=== PATIENT | male | born 1985 | race Caucasian/White ===

== ENCOUNTER → 2020-06-12 09:02 | Outpatient (BNVA) | payer MEDICAID, SELFPAY | PROVIDERS: PCP Internal Medicine; Visit Provider Physician Assistant ==

== ENCOUNTER → 2020-08-08 08:56 | Outpatient (BNVA) | payer MEDICAID, SELFPAY | PROVIDERS: PCP Internal Medicine; Visit Provider Physician Assistant ==

== ENCOUNTER → 2022-04-01 08:46 | Outpatient (BNVA) | payer MEDICAID, SELFPAY | PROVIDERS: PCP Internal Medicine; Referring Provider Internal Medicine; Visit Provider Internal Medicine Cardiovascular Disease | DX: R07.9 Chest pain, unspecified (principal) | CPT/HCPCS: 93005; 99202 ==

== ENCOUNTER → 2022-04-13 09:05 | Outpatient (REF) | payer MEDICAID, SELFPAY ==
--- NOTE | 2022-04-13 09:07 | CA_ITS ---
Acquisition Time: 2022-04-13 09:25:26 Total Exercise Time: 00:10:18 Test Indications: CP Medications: SEE CHART Protocol: JIM Max HR: 184 BPM 101% of Pred: 182 BPM Max BP: 184/054 mmHG Max Work Load: 12.2 METS Exercise stress test with exercise 10 min 18 sec of Jim protocol, achieving 101% MPHR, 12.2 METs, without anginal symptoms, with request to stop due to low back discomfort, with isolated PVC, with normotensive response to exercise, without EKG changes meeting criteria for ischemia. Test reviewed with Dr Saenz. Referred By: Aneudy Saenz Overread By: CHINA CASTREJON
== END ==
LOC: HO.CARD 09:05
PROVIDERS: PCP Internal Medicine; Visit Provider Internal Medicine Cardiovascular Disease
DX: R07.9 Chest pain, unspecified (principal)
CPT/HCPCS: 93017

== ENCOUNTER 2022-04-29 08:20 | Outpatient (REF) | payer MEDICAID, SELFPAY ==
--- NOTE | ~2022-04-29 | US_ITS ---
EXAMINATION: US ABDOMEN COMPLETE CLINICAL INFORMATION: Cholesterolosis of gallbladder. COMPARISON: Abdominal ultrasound 04/04/2019 and 08/11/2018. TECHNIQUE: Real-time imaging of the abdominal viscera. FINDINGS: PANCREAS: Normal. The visualized pancreatic head and body are normal in appearance. The remainder of the pancreas is obscured from visualization by the overlying bowel gas. ABDOMINAL AORTA: The proximal, mid, and distal segments are normal in caliber. INFERIOR VENA CAVA: Visualized portions are normal. LIVER: The liver is normal in size. The liver contour is normal. There is mildly increased liver parenchymal echotexture. No focal hepatic lesion. There is no intrahepatic biliary duct dilatation seen. GALLBLADDER: 4 mm, 4 mm and 4 mm nonmobile gallbladder polyps are seen. The gallbladder is physiologically distended without evidence of stones, sludge, wall thickening or pericholecystic fluid. COMMON BILE DUCT: Normal in caliber measuring 0.4 cm in diameter. RIGHT KIDNEY: A 1.3 cm anechoic, simple parapelvic cyst is noted. No hydronephrosis or renal calculi. The kidney measures 10.7 cm in maximum dimension. LEFT KIDNEY: At the lower pole laterally, a 1.6 cm anechoic, simple cyst is seen. No hydronephrosis or renal calculi. The kidney measures 11.0 cm in maximum dimension. SPLEEN: Normal. The spleen measures 8.5 cm in maximum dimension. FREE FLUID: None. US/US abdomen complete IMPRESSION: 1. Tiny, stable gallbladder polyps are redemonstrated, consistent with cholesterol polyps. 2. There is generalized increase in hepatic echotexture, consistent with fatty infiltration or hepatocellular disease. Please correlate clinically. No focal hepatic mass or intrahepatic biliary dilatation is seen. 3. Simple bilateral renal cysts are noted. 4. Technically limited ultrasound examination of the pancreatic tail.
== END 2022-04-29 08:21 | disposition home or self-care (01) ==
LOC: HO.US 08:20
PROVIDERS: Visit Provider Internal Medicine
DX: K82.4 Cholesterolosis of gallbladder (principal)
CPT/HCPCS: 76700

== ENCOUNTER 2022-04-30 13:08 | Outpatient (REF) | payer MEDICAID, SELFPAY ==
--- NOTE | 2022-04-30 08:00 | EMG_ITS ---
SUMMARY: Left median and ulnar motor and sensory studies were performed. Left radial sensory study was performed and paraspinal muscles were tested with a needle. IMPRESSION: Mild left ulnar neuropathy across cubital tunnel. MD MAURO Vee/MISHEL / [phone]
== END 2022-04-30 13:09 | disposition home or self-care (01) ==
LOC: HO.NEURO 13:08
PROVIDERS: PCP Internal Medicine; Visit Provider Internal Medicine
DX: R20.0 Anesthesia of skin (principal)
CPT/HCPCS: 95886; 95909

== ENCOUNTER → 2022-06-29 08:51 | Outpatient (BNVA) | payer MEDICAID, SELFPAY | PROVIDERS: PCP Internal Medicine; Referring Provider Internal Medicine; Visit Provider Internal Medicine Cardiovascular Disease | DX: R07.9 Chest pain, unspecified (principal) | CPT/HCPCS: 99212 ==

== ENCOUNTER 2022-11-13 13:49 | Outpatient (REF) | payer MEDICAID, SELFPAY ==
--- NOTE | ~2022-11-13 | XR_ITS ---
EXAMINATION: XR LUMBOSACRAL SPINE WITH OBLIQUES CLINICAL INFORMATION: 4 days of low back pain. Acute right lower extremity sciatica. COMPARISON: Lumbar spine 08/11/2018 TECHNIQUE: AP, both oblique, and lateral views of the lumbar spine. Lateral view of the lumbosacral junction. FINDINGS: The vertebral bodies and posterior elements are normal. The disc spaces are preserved and the vertebral alignment is normal. The paraspinal soft tissues are normal. XR/XR lumbar spine 4V min IMPRESSION: Unremarkable examination.
== END 2022-11-13 13:50 | disposition home or self-care (01) ==
LOC: HO.HHCX 13:49
PROVIDERS: Visit Provider Emergency Medicine
DX: M54.16 Radiculopathy, lumbar region (principal)
CPT/HCPCS: 72110

== ENCOUNTER 2022-11-23 09:31 | Emergency (ER) | payer MEDICAID, SELFPAY ==
[2022-11-23 09:32] VITALS: BP 138/82; PULSE 81; RESP 17; TEMP 36.4; O2SAT 99; BMI 32.6
--- NOTE | 2022-11-23 10:03 | PC.NURSE ---
pt A&Ox4. reporting R sided facial weakness that he now reports is mostly resolved . pt reports noticing it when he was brushing his teeth that his mouth felt weird . pt with all 4 limbs +5, R sided slight droop noted when pt smiles, pts right eyebrow with decreased slightly mobility.
[2022-11-23 10:04] LABS: MANUAL DIFF FLAG NO
[2022-11-23 10:05] LABS: Basophils Percent Auto 0.3 % (0-2); Eosinophils Percent Auto 0.5 % (0-4); Hematocrit 41.4 % (42.0-52.0); Hemoglobin 13.5 g/dl (14.0-18.0); Imm Gran Abs Auto 0.05 X10*3/uL (0.00-0.03); Imm Gran Pct Auto 0.6 % (0.0-0.4); Lymphocytes Absolute Auto 1.7 X10*3/uL (1.2-4.9); Lymphocytes Percent Auto 19.8 % (20-40); Mean Corpuscular HGB Conc 32.6 g/dl (31.0-36.0); Mean Corpuscular Hemoglobin 28.8 pg (27.0-33.0); Mean Corpuscular Volume 88.5 fL (80.0-98.0); Mean Platelet Volume 9.5 fL (9.4-12.4); Monocytes Absolute Auto 0.7 X10*3/uL (0.1-1.2); Monocytes Percent Auto 7.4 % (2-11); Neutrophils Absolute Auto 6.3 x10*3/uL (2.0-8.3); Neutrophils Percent Auto 71.4 % (45-73); Platelet Count 366 X10*3/uL (160-400); Red Blood Count 4.68 X10*6/uL (4.60-5.80); Red Cell Distribution Width 13.4 % (11.0-16.0); White Blood Count 8.8 X10*3/uL (4.8-10.8)
[2022-11-23 10:22] LABS: Anion Gap 16 (12-20); Blood Urea Nitrogen 10 mg/dL (9-16); Calcium 9.6 mg/dL (8.4-10.2); Carbon Dioxide 22 mmol/L (22-29); Chloride 107 mmol/L (96-108); Creatinine Clr Calc Pharmacy 125.5; Estimated Glomerular Filt Rate > 60; Glucose Random 106 mg/dL (60-115); Potassium 4.1 mmol/L (3.3-5.1); Sodium 141 mmol/L (135-145)
--- NOTE | 2022-11-23 10:24 | ED.NEUROSD ---
HPI - Neuro Symptoms/Deficit General Chief Complaint: Neuro Symptoms/Deficit Stated Complaint: r side facial numbness Time Seen by Provider: 11/23/22 10:02 Source: patient and EMS Mode of arrival: EMS Limitations: no limitations History of Present Illness HPI Narrative: 29-year-old male presents with right facial numbness and weakness. Symptoms started this morning when he woke up. He went to sleep normally but then woke when he went to wash his face of fell significantly different. He feels like he is unable to close his eyes. He feels tingling in his face and also a change in taste in his on the right side of his tongue. He denies any recent infections. Denies any other focal weakness. He has never had this before. Patient describes symptoms as moderate to severe in nature. There is no clear relieving or exacerbating features. He went to an urgent care center was sent in for an evaluation in the emergency department. Related Data Previous Rx's Medication Instructions Recorded rabeprazole 20 mg tablet,delayed 20 mg PO DAILY #30 tabs 06/12/20 release prednisone 50 mg tablet 50 mg PO DAILY #7 tabs 11/23/22 valacyclovir 1 gram tablet 1,000 mg PO Q8H #21 tabs 11/23/22 (Valtrex) Allergies Allergy/AdvReac Type Severity Reaction Status Date / Time No Known Allergies Allergy Verified 06/29/22 08:54 Review of Systems Review of Systems: CONSTITUTIONAL: Denies weight loss, fever and chills. HEENT: Denies changes in vision and hearing. RESPIRATORY: Denies SOB and cough. CV: Denies palpitations no CP. GI: Denies abdominal pain, nausea, vomiting and diarrhea. : Denies dysuria and urinary frequency. MSK: Denies myalgia and joint pain. SKIN: Denies rash and pruritus. NEUROLOGICAL: Denies headache and syncope. PSYCHIATRIC: Denies recent changes in mood. Denies anxiety and depression. All other ROS are negative unless in HPI PMFSH Past Medical History Medical History Acid reflux Surgical History H/O colonoscopy History of esophagogastroduodenoscopy (EGD) Family History Family History Brother Brain cancer Social History Social History Household Members: Spouse and Children Alcohol intake: current Alcohol intake frequency: holidays/special occasions only Patient Tobacco Use Status: Never used Tobacco Smoked in Last 30 Days: Yes Use of substances other than those prescribed or required for medical reasons: Yes Substance Use Type: Marijuana Advance Directives: No Advance Directives Information Provided: No Current occupational status: employed 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 Physical Exam Vital Signs: Vital Signs: Last Vital Signs Temp 97.5 F 11/23/22 09:32 Pulse 81 11/23/22 09:32 Resp 17 11/23/22 09:32 BP 138/82 11/23/22 09:32 Pulse Ox 99 11/23/22 09:32 O2 Del Method Room Air 11/23/22 09:32 BMI result Body Mass Index 32.6 GEN: Well developed, no acute distress, alert, oriented HEENT: Normocephalic, atraumatic, normal external ears, nose appears normal, no oropharyngeal edema or exudates Eyes: Normal to appearance Neck: Supple, no lymphadenopathy Respiratory: Talks in complete sentences, no respiratory distress, clear to auscultation bilaterally Cardiovascular: Regular rate and rhythm, no murmurs rubs or gallops Abdomen: Soft, nontender, nondistended, no guarding, no rebound Back: No CVA tenderness Extremities: No clubbing cyanosis or edema Neurologic: Right facial asymmetry, change in alteration of right smile which is slightly droopy, slight change and eye closing on the right, able to raise both eyebrows however right side is increasingly weak. Sensation is intact. Otherwise are no additional focal neurologic deficits. Skin: No rash Medical Decision Making Medical Decision Making MDM Narrative: 37-year-old male with no major medical problems presents with right facial weakness and numbness. Symptoms started were noticed when he awoke. He was last normal last night. He denies any other focal neurologic deficits. On my examination he does have a subtle right forehead weakness with raising the eyebrow, otherwise he has definite right mouth droop. He has no other focal deficits. Based on the involvement of the forehead, this appears to be or peripheral nerve as opposed 0 central nerve issue. 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 Will treat patient with steroids and antiviral medications. He will return for any worsening or concerning symptoms. Differential Diagnosis Differential Diagnoses: The differential diagnosis associated with the presentation includes (Nerve palsy, Terrazas's palsy, stroke, TIA, Lyme) Lab Data MDM Lab Attestation statement: I reviewed the patient's lab results. 11/23/22 10:00 11/23/22 10:00 Labs: Lab Results 11/23/22 11/23/22 Range/Units 10:00 10:00 WBC 8.8 (4.8-10.8) X10*3/uL RBC 4.68 (4.60-5.80) X10*6/uL Hgb 13.5 L (14.0-18.0) g/dl Hct 41.4 L (42.0-52.0) % MCV 88.5 (80.0-98.0) fL MCH 28.8 (27.0-33.0) pg MCHC 32.6 (31.0-36.0) g/dl RDW 13.4 (11.0-16.0) % Plt Count 366 (160-400) X10*3/uL MPV 9.5 (9.4-12.4) fL Immature Gran % (Auto) 0.6 H (0.0-0.4) % Neut % (Auto) 71.4 (45-73) % Lymph % (Auto) 19.8 L (20-40) % Vinton % (Auto) 7.4 (2-11) % Eos % (Auto) 0.5 (0-4) % Baso % (Auto) 0.3 (0-2) % Lymph # (Auto) 1.7 (1.2-4.9) X10*3/uL Vinton # (Auto) 0.7 (0.1-1.2) X10*3/uL Eos # (Auto) 0.0 (0.0-0.4) X10*3/uL Baso # (Auto) 0.0 (0.0-0.2) X10*3/uL Abs Immat Gran (auto) 0.05 H (0.00-0.03) X10*3/uL Absolute Neuts (auto) 6.3 (2.0-8.3) x10*3/uL Absolute Nucleated RBC 0.000 (0.0-0.012) X10*3/uL Nucleated RBC % (auto) 0.0 (0.0-0.2) /100WBC Sodium 141 (135-145) mmol/L Potassium 4.1 (3.3-5.1) mmol/L Chloride 107 (96-108) mmol/L Carbon Dioxide 22 (22-29) mmol/L Anion Gap 16 (12-20) BUN 10 (9-16) mg/dL Creatinine 0.93 (0.5-1.4) mg/dL Estim Creat Clear Calc 125.5 Estimated GFR > 60 Random Glucose 106 (60-115) mg/dL Calcium 9.6 (8.4-10.2) mg/dL Independent Interpretation I performed an independent interpretation of an: EKG (Normal sinus rhythm heart rate 66, no acute ST elevations or depressions, normal intervals, no evidence of heart block.) Independent Historian Clinical information obtained from an independent historian. History obtained from or confirmed by: EMS Tests considered The following testing was considered but not selected: CT scan TIA or mass effect. Prescription Management I considered prescription management with: Antiviral Discharge Plan Discharge Clinical Impression: Terrazas's palsy Patient Disposition: Home, Self-Care Instructions: Terrazas Palsy (ED) Prescriptions: New prednisone 50 mg tablet 50 mg PO DAILY Qty: 7 0RF valacyclovir [Valtrex] 1 gram tablet 1,000 mg PO Q8H Qty: 21 0RF No Action rabeprazole 20 mg tablet,delayed release (DR/EC) 20 mg PO DAILY Qty: 30 5RF Referrals: Patrice Blake MD [Primary Care Provider] - 2 days
--- NOTE | 2022-11-23 10:29 | ECG_ITS ---
Test Reason : cp Blood Pressure : / mmHG Vent. Rate : 066 BPM Atrial Rate : 066 BPM P-R Int : 170 ms QRS Dur : 086 ms QT Int : 392 ms P-R-T Axes : 011 001 015 degrees QTc Int : 410 ms Normal sinus rhythm Normal ECG No previous ECGs available Referred By: Alex Cuevas Electronically Signed By:SAMANTHA CRUZ
[2022-11-25 01:14] LABS: Lyme Blot 7.71 index
[2022-11-25 16:01] LABS: Lyme Abs Screen POSITIVE
[2022-11-25 16:02] LABS: 18 KD (IgG) Band REACTIVE; 23 KD (IgG) Band NON-REACTIVE; 23 KD (IgM) Band REACTIVE; 28 KD (IgG) Band NON-REACTIVE; 30 KD (IgG) Band NON-REACTIVE; 39 KD (IgM) Band REACTIVE; 39KD (IgG) Band REACTIVE; 41 KD (IgM) Band REACTIVE; 41KD (IgG) Band REACTIVE; 45 KD (IgG) Band REACTIVE; 58 KD (IgG) Band REACTIVE; 66 KD (IgG) Band REACTIVE; 93 KD (IgG) Band REACTIVE; Lyme IgG Blot Interp POSITIVE (NEGATIVE); Lyme IgM Blot Interp POSITIVE (NEGATIVE)
--- NOTE | 2022-11-27 10:50 | ED.NEUROSD ---
HPI - Neuro Symptoms/Deficit General Chief Complaint: Neuro Symptoms/Deficit Stated Complaint: r side facial numbness Time Seen by Provider: 11/23/22 10:02 Source: patient and EMS Mode of arrival: EMS Limitations: no limitations Related Data Previous Rx's Medication Instructions Recorded rabeprazole 20 mg tablet,delayed 20 mg PO DAILY #30 tabs 06/12/20 release prednisone 50 mg tablet 50 mg PO DAILY #7 tabs 11/23/22 valacyclovir 1 gram tablet 1,000 mg PO Q8H #21 tabs 11/23/22 (Valtrex) doxycycline monohydrate 100 mg 100 mg PO BID #42 caps 11/27/22 capsule Allergies Allergy/AdvReac Type Severity Reaction Status Date / Time No Known Allergies Allergy Verified 06/29/22 08:54 PMFSH Past Medical History Medical History Acid reflux Surgical History H/O colonoscopy History of esophagogastroduodenoscopy (EGD) Family History Family History Brother Brain cancer Social History Social History Household Members: Spouse and Children Alcohol intake: current Alcohol intake frequency: holidays/special occasions only Patient Tobacco Use Status: Never used Tobacco Substance Use Type: Marijuana Current occupational status: employed 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 Called and informed patient of the results. Sent doxycycline BID x 21 days to pharmacy. All questions answered Medical Decision Making Lab Data 11/23/22 10:00 11/23/22 10:00 Labs: Lab Results 11/23/22 11/23/22 11/23/22 Range/Units 10:00 10:00 11:15 WBC 8.8 (4.8-10.8) X10*3/uL RBC 4.68 (4.60-5.80) X10*6/uL Hgb 13.5 L (14.0-18.0) g/dl Hct 41.4 L (42.0-52.0) % MCV 88.5 (80.0-98.0) fL MCH 28.8 (27.0-33.0) pg MCHC 32.6 (31.0-36.0) g/dl RDW 13.4 (11.0-16.0) % Plt Count 366 (160-400) X10*3/uL MPV 9.5 (9.4-12.4) fL Immature Gran % (Auto) 0.6 H (0.0-0.4) % Neut % (Auto) 71.4 (45-73) % Lymph % (Auto) 19.8 L (20-40) % Emanuel % (Auto) 7.4 (2-11) % Eos % (Auto) 0.5 (0-4) % Baso % (Auto) 0.3 (0-2) % Lymph # (Auto) 1.7 (1.2-4.9) X10*3/uL Emanuel # (Auto) 0.7 (0.1-1.2) X10*3/uL Eos # (Auto) 0.0 (0.0-0.4) X10*3/uL Baso # (Auto) 0.0 (0.0-0.2) X10*3/uL Abs Immat Gran (auto) 0.05 H (0.00-0.03) X10*3/uL Absolute Neuts (auto) 6.3 (2.0-8.3) x10*3/uL Absolute Nucleated RBC 0.000 (0.0-0.012) X10*3/uL Nucleated RBC % (auto) 0.0 (0.0-0.2) /100WBC Sodium 141 (135-145) mmol/L Potassium 4.1 (3.3-5.1) mmol/L Chloride 107 (96-108) mmol/L Carbon Dioxide 22 (22-29) mmol/L Anion Gap 16 (12-20) BUN 10 (9-16) mg/dL Creatinine 0.93 (0.5-1.4) mg/dL Estim Creat Clear Calc 125.5 Estimated GFR > 60 Random Glucose 106 (60-115) mg/dL Calcium 9.6 (8.4-10.2) mg/dL Lyme Screen IgG & IgM POSITIVE Lyme Progressive Test 7.71 H index Lyme IgG 18 kDa Band REACTIVE A Lyme IgG 23 kDa Band NON-REACTIVE Lyme IgG 28 kDa Band NON-REACTIVE Lyme IgG 30 kDa Band NON-REACTIVE Lyme IgG 45 kDa Band REACTIVE A Lyme IgG 58 kDa Band REACTIVE A Lyme IgG 66 kDa Band REACTIVE A Lyme IgG 93 kDa Band REACTIVE A Lyme IgG Ab (Immblot) POSITIVE A (NEGATIVE) Lyme IgM 23 kDa Band REACTIVE A Lyme IgM 39 kDa Band REACTIVE A Lyme IgM 41 kDa Band REACTIVE A Lyme IgM Interpretaton POSITIVE A (NEGATIVE) Discharge Plan Discharge Clinical Impression: Terrazas's palsy Patient Disposition: Home, Self-Care Instructions: Terrazas Palsy (ED) Prescriptions: New prednisone 50 mg tablet 50 mg PO DAILY Qty: 7 0RF valacyclovir [Valtrex] 1 gram tablet 1,000 mg PO Q8H Qty: 21 0RF doxycycline monohydrate 100 mg capsule 100 mg PO BID Qty: 42 0RF No Action rabeprazole 20 mg tablet,delayed release (DR/EC) 20 mg PO DAILY Qty: 30 5RF Referrals: Patrice Blake MD [Primary Care Provider] - 2 days Interventions: ED Discharge Assessment Last Done: 11/23/22 11:41 Discharge Date/Time: 11/23/22 11:41
== END 2022-11-23 11:41 | disposition home or self-care (01) ==
PROVIDERS: Emergency Provider Emergency Medicine; PCP Internal Medicine
DX: G51.0 Bell's palsy (principal); Z79.899 Other long term (current) drug therapy
CPT/HCPCS: 36415; 80048; 85025; 86617; 86618; 93005; 99283; 99284

== ENCOUNTER → 2022-11-23 10:29 | Outpatient (BNV) | payer MEDICAID, SELFPAY | PROVIDERS: Emergency Provider Emergency Medicine; PCP Internal Medicine; Visit Provider Internal Medicine | DX: R07.9 Chest pain, unspecified (principal) | CPT/HCPCS: 93010 ==

== ENCOUNTER 2022-12-21 09:00 | Outpatient (RCR) | payer MEDICAID, SELFPAY | END 2023-01-18 10:19 | disposition home or self-care (01) | LOC: HO.PT 09:00 | PROVIDERS: PCP Internal Medicine; Visit Provider Emergency Medicine | DX: M54.16 Radiculopathy, lumbar region (principal) | CPT/HCPCS: 97110; 97161 ==

== ENCOUNTER 2024-11-27 08:12 | Outpatient (REF) | payer MEDICAID, SELFPAY ==
--- OUTSIDE RECORDS SUMMARY | 2024-11-21 09:30 | XMS_ITS | Encounter Summary ---
Author Organization [employer] Address [address] [place] [address] [address] [place] [address] Care Team Providers Care Drawing Tracer Name Role Phone Patrice Silva MD Primary Care Provide r Reason for Referral * Consultation (Routine) - Authorized Specialty Diagnoses / Procedures Referred By Contac t Referred To Contact Urology Diagnoses Vasectomy evaluation Patrice Silva MD [address] [place] [id number] Phone: tel: fax: Roque Adrian MD [address] [place] [address] Phone: tel: fax: Referral ID Status Reason Start Date Expiration Date Visits Requested Visits Authorized [id number] Authorized Specialty Services Required 11/21/2024 11/21/2025 6 6 Reason for Visit * Reason Comments Annual Exam Encounter Details Date Type Department Care Team (Latest Contact Info) Description 11/21/2024 9:30 AM EDT Office Visit [facility] [address] [place] [phone] Patrice Silva MD [address] [place] [address] [phone] Onychomycosis of great toe (Primary Dx); Vasectomy evaluation Social History Tobacco Use Types Packs/Day Years Used Date Smoking Tobacco: Never Passive Smoke Exposure: Never Smokeless Tobacco: Never Alcohol Use Standard Drinks/Week Comments Not Currently 0 (1 standard drink = 0.6 oz pur e alcohol) Special Occasions Depression Answer Date Recorded Patient Health Questionnaire-9 Score 0 11/21/2024 Patient Health Questionnaire-9 Score 0 11/21/2024 Last PHQ-9: Questionnaire Data Not on file 0 11/21/2024 Housing Stability Answer Date Recorded What is your housing situation today? I have lexus meraz 11/21/[address] you li ve. Do you have problems with any of the following? None of the above 11/21/2024 Food Insecurity Answer Date Recorded Within the past 12 months, y ou worried that your food would run out before you got money to buy more: Never True 11/21/2024 Within the past 12 months,th e food you bought just didn't last and you didn't have enough money to get more: Never True Transportation Answer Date Recorded In the past 12 months, has l ack of transportation kept you from medical appts, meetings, work or from getting things needed for daily living? No 11/21/2024 Utilities Answer Date Recorded In the past 12 months, has t he electric, gas, oil or water company threatened to shut off services in your home? No 11/21/2024 Depression Answer Date Recorded Patient Health Questionnaire-2 Score 0 11/21/2024 Internet Access Answer Date Recorded Internet Access Q1 No 11/21/2024 Internet Access Q2 I do not want or need it 10/25 Sex and Gender Information Value Date Recorded Sex Assigned at Male 02/23/2022 10:18 AM EDT Legal Sex Male 10:18 AM EDT Gender Identity Male 02/23/2022 10:18 AM EDT Sexual Orientation Straight 02/23/2022 10 :18 AM EDT documented as of this encounter Last Filed Vital Signs Vital Sign Reading Time Taken Comments Blood Pressure 122/74 11/21/2024 9:21 AM EDT Pulse 102 11/21/2024 9:21 AM EDT Temperature 37.2 C (98.9 F) 11/21/2024 9:21 AM EDT Respiratory Rate 20 11/21/2024 9:21 AM EDT Oxygen Saturation 97% 11/21/2024 9:21 AM EDT Inhaled Oxygen Concentration - - Weight 95 kg (209 lb 6.4 oz) 11/21/2024 9:21 AM EDT Height 175.3 cm (5' 9 ) 11/21/2024 9:21 AM EDT Body Mass Index 30.92 11/21/2024 9:21 AM EDT documented in this encounter Functional Status * Over the past 2 weeks, how often have you been bothered by any of the following problems? Question Answer Date of Assessment Author Patient Health Questionnaire-2 Score 0 10/25 9:24 AM Rowena Matos MA * Little interest or pleasure in doing things Answer Date of Assessment Author Not at all 11/21/2024 9:24 AM Koko Matos MA * Feeling down, depressed, or hopeless Answer Date of Assessment Author Not at all 11/21/2024 9:24 AM Koko Matos MA * Trouble falling or staying asleep, or sleeping too much Answer Date of Assessment Author Not at all 11/21/2024 9:24 AM Koko Matos MA * Feeling tired or having little energy Answer Date of Assessment Author Not at all 11/21/2024 9:24 AM Koko Matos MA * Poor appetite or overeating Answer Date of Assessment Author Not at all 11/21/2024 9:24 AM Koko Matos MA * Feeling bad about yourself - or that you are a failure or have let yourself or your family down Answer Date of Assessment Author Not at all 11/21/2024 9:24 AM Koko Matos MA * Trouble concentrating on things, such as reading the newspaper or watching television Answer Date of Assessment Author Not at all 11/21/2024 9:24 AM Koko Matos MA * Moving or speaking so slowly that other people could have noticed? Or the opposite - being so fidgety or restless that you have been moving around a lot more than usual. Answer Date of Assessment Author Not at all 11/21/2024 9:24 AM Koko Matos MA * Thoughts that you would be better off or hurting yourself in some way Answer Date of Assessment Author Not at all 11/21/2024 9:24 AM Koko Matos MA * Patient Health Questionnaire-9 Score Answer Date of Assessment Author 0 11/21/2024 9:24 AM EDT Koko Barnhart MA documented as of this encounter Progress Notes * Patrice Barnhart MD - 11/21/2024 9:30 AM EDT SUBJECTIVE Christian Cunningham is a 39 y.o. male who presents for Annual Exam. Patient with c/o thickened right great toe nail Review of Systems Constitutional: Negative for fever. HENT: Negative for sore throat. Respiratory: Negative for cough and shortness of breath. Cardiovascular: Negative for chest pain. Gastrointestinal: Negative for abdominal pain. Neurological: Negative for headaches. Allergies[1] OBJECTIVE Vitals: 11/21/24 0921 BP: 122/74 BP Location: Left arm Patient Position: Sitting BP Cuff Size: Adult Pulse: 102 Resp: 20 Temp: 98.9 ??F (37.2 ??C) TempSrc: Oral SpO2: 97% Weight: 209 lb 6.4 oz (95 kg) Height: 5' 9 (1.753 m) Physical Exam Vitals reviewed. Constitutional: Appearance: Normal appearance. HENT: Head: Normocephalic and atraumatic. Right Ear: External ear normal. Left Ear: External ear normal. Nose: Nose normal. Mouth/Throat: Mouth: Mucous membranes are moist. Eyes: Conjunctiva/sclera: Conjunctivae normal. Cardiovascular: Rate and Rhythm: Normal rate and regular rhythm. Pulmonary: Effort: Pulmonary effort is normal. Breath sounds: Normal breath sounds. Skin: General: Skin is warm. Comments: Yellowish thickened discolored right great toe nail Neurological: Mental Status: He is alert. Mental status is at baseline. Assessment/Plan Problem List Items Addressed This Visit Onychomycosis of great toe - Primary Exam indicative of this Plan: Obtain LFTs if normal start Terbinafine x 3 months Relevant Medications terbinafine (LamISIL) 250 MG tablet Other Relevant Orders Comprehensive Metabolic Panel Vasectomy evaluation Pt interested in vasectomy Plan: refer to Urology Relevant Orders Referral to Urology No future appointments. [1] No Known Allergies documented in this encounter Miscellaneous Notes * Assessment & Plan Note - Patrice Barnhart MD - 11/21/2024 9:46 AM EDT Associated Problem(s): Vasectomy evaluation Pt interested in vasectomy Plan: refer to Urology * Assessment & Plan Note - Patrice Barnhart MD - 11/21/2024 9:45 AM EDT Associated Problem(s): Onychomycosis of great toe Exam indicative of this Plan: Obtain LFTs if normal start Terbinafine x 3 months documented in this encounter Plan of Treatment Scheduled Orders Name Type Priority Associated Diagnoses Orde r Schedule Comprehensive Metabolic Panel Lab Routine Onychomycosis of great toe Ordered: 11/21/2024 Scheduled Referrals Name Type Priority Associated Diagnoses Orde r Schedule Referral to Urology Outpatient Referral Routine Vasectomy evaluation Expected: 11/21/2024 (Approximate), Expires: 11/21/2025 documented as of this encounter Visit Diagnoses Diagnosis Onychomycosis of great toe- Primary Vasectomy evaluation Other general counseling and advice for contraceptive management documented in this encounter Additional Health Concerns Assessment Noted Time PHQ-9 Depression Total Score: 0 11/22/19 25 9:24 AM EDT documented as of this encounter Care Teams Drawing Tracer Relationship Specialty Start Date End Date Patrice Silva MD [address] [place] [phone] PCP - General Internal Medicine 12/01/13 documented as of this encounter
[2024-11-27 11:52] LABS: Alanine Aminotransferase 21 U/L (0-40); Albumin Level 4.6 g/dL (3.5-5.0); Alkaline Phosphatase 60 U/L (39-117); Anion Gap 13 (12-20); Aspartate Amino Transferase 25 U/L (5-37); Blood Urea Nitrogen 16 mg/dL (9-16); Calcium 9.0 mg/dL (8.4-10.2); Carbon Dioxide 24 mmol/L (22-29); Chloride 108 mmol/L (96-108); Estimated Glomerular Filt Rate > 60; Potassium 4.2 mmol/L (3.3-5.1); Sodium 141 mmol/L (135-145); Total Protein 7.1 g/dL (6.5-8.0)
== END 2024-11-27 08:13 | disposition home or self-care (01) ==
LOC: HO.HHCL 08:12
PROVIDERS: PCP Internal Medicine; Visit Provider Internal Medicine
DX: B35.1 Tinea unguium (principal)
CPT/HCPCS: 36415; 80053

== ENCOUNTER 2025-02-15 07:52 | Outpatient (AMB) | payer MEDICAID, SELFPAY ==
--- OUTSIDE RECORDS SUMMARY | 2025-02-15 07:54 | XMS_ITS | Encounter Summary ---
Author Organization [employer] Address [address] [place] [address] [address] [place] [address] Care Team Providers Care Rotating Equipment Engineer Name Role Phone Patrice Silva MD Primary Care Provide r Reason for Visit * Reason Comments Med Refill Encounter Details Date Type Department Care Team ([facility] st Contact Info) Description 08/03/2024 Refill [facility] [address] [place] [phone] Patrice Silva MD [address] [place] [address] Social History Tobacco Use Types Packs/Day Years Used Date Smoking Tobacco: Never Passive Smoke Exposure: Never Smokeless Tobacco: Never Alcohol Use Standard Drinks/Week Comments Not Currently 0 (1 standard drink = 0.6 oz pur e alcohol) Special Occasions Depression Answer Date Recorded Patient Health Questionnaire-9 Score 0 12/29/2022 Housing Stability Answer Date Recorded What is your housing situation today? I have lexus meraz 03/01/[address] you li ve. Do you have problems with any of the following? None of the above 03/01/2023 Food Insecurity Answer Date Recorded Within the past 12 months, y ou worried that your food would run out before you got money to buy more: Never True 03/01/2023 Within the past 12 months,th e food you bought just didn't last and you didn't have enough money to get more: Never True 09/2022 Transportation Answer Date Recorded In the past 12 months, has l ack of transportation kept you from medical appts, meetings, work or from getting things needed for daily living? No 03/01/2023 Utilities Answer Date Recorded In the past 12 months, has t he electric, gas, oil or water company threatened to shut off services in your home? No 03/01/2023 Depression Answer Date Recorded Patient Health Questionnaire-2 Score 0 12/29/2022 Sex and Gender Information Value Date Recorded Sex Assigned at Male 02/23/2022 10:18 AM EDT Legal Sex Male 10:18 AM EDT Gender Identity Male 02/23/2022 10:18 AM EDT Sexual Orientation Straight 02/23/2022 10 :18 AM EDT documented as of this encounter Plan of Treatment Not on file documented as of this encounter Visit Diagnoses Not on filedocumented in this encounter Additional Health Concerns Assessment Noted Time PHQ-9 Depression Total Score: 0 12/30/19 23 8:51 AM EDT documented as of this encounter Care Teams Rotating Equipment Engineer Relationship Specialty Start Date End Date Patrice Silva MD [address] [place] [address] PCP - General Internal Medicine 12/01/13 documented as of this encounter
--- OUTSIDE RECORDS SUMMARY | 2025-02-15 07:54 | XMS_ITS | Clinical Summary ---
Author Organization [employer] Address [address] [facility] [address] [place] [address] Care Team Providers Care Social Work Supervisor Name Role Phone Patrice Silva MD Primary Care Provide r Allergies No known active allergies Medications baclofen (Lioresal) 10 MG tablet Take one tablet TID PRN 30 tablet 11/13/2022 Active RABEprazole (Aciphex) 20 MG EC tablet TAKE 1 TABLET BY MOUTH EVERY DAY. SWALLOW WHOLE AND DO NOT CRUSH OR CHEW OR DIVIDE 90 tablet 1 09/16/2023 Active terbinafine (LamISIL) 250 MG tabletIndicatio ns:Onychomycosi s of great toe Take 1 tablet (250 mg) by mouth Once per day. 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 I had ordered a NCS 04/2022 that showed: Mild left ulnar neuropathy across cubital tunnel. Gallbladder polyp 12/29/2022 Assessment & Plan (12/29/2022 9:12 AM EDT): Seen on previous U/S Repeat US 04/2022 showed: 1. Tiny, stable gallbladder polyps are redemonstrated, consistent with cholesterol polyps. 2. There is generalized increase in hepatic echotexture, consistent with fatty infiltration or hepatocellular disease. Please correlate clinically. No focal hepatic mass or intrahepatic biliary dilatation is seen. 3. Simple bilateral renal cysts are noted. 4. Technically limited ultrasound examination of the pancreatic tail. 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 Pt finished a 21 day course of Doxy with excellent results all symptoms have since then resolved Gastroesophageal reflux disease 11/13/2022 Assessment & Plan (12/29/2022 9:09 AM EDT): Under the care of Gastroenterology, last seen 08/08/2020 Of note pt had an EGD and Colonoscopy 09/13/2018 Continue PPI Atypical chest pain 01/19/2012 Assessment & Plan (12/29/2022 9:08 AM EDT): Pt with previous c/o intermittent left sided chest pain, not associated with any other symptoms Exam unremarkable, EKG in the office was Normal Pt was evaluated by Cardiology for Out patient stress test, last note from 06/2022 stated stress was negative and pt's chest discomfort was non cardiac Obesity 01/04/2012 Tinea pedis 01/04/2012 Rash 01/04/2012 Encounters Date Type Department Care Team Description 11/21/2024 9:30 AM EDT Office Visit [facility] [address] [place] [phone] Patrice Silva MD Onychomycosis of great toe (Primary Dx); Vasectomy evaluation 11/21/2024 Travel 11/20/2024 Telephone [facility] [address] [place] [address] Patrice Silva MD Chart Prep from Last 3 Months Immunizations Immunization Administration Dates Next Due Hep A, Adult 12/30/2007,12/22/2007 Hep B, Adolescent or Pediatric 08/20/1998 Hep B, adult 07/22/2007,06/23/2007,12/29/2004 Influenza injectable quadriv alent IIV4 with preservative 05/02/2015 Influenza injectable quadriv alent preservative free 02/05/2022,02/21/2020,07/19/2018 Influenza, IIV3, injectable 12/15/2010 MMR 01/04/2012 TD (adult), 2 Lf tetanus tox oid, preservative free, adsorbed 10/01/2004 Td (adult), 5 Lf tetanus tox oid, preservative free, adsorbed 08/20/1998 Tdap 01/04/2012 Social History Tobacco Use Types Packs/Day Years Used Date Smoking Tobacco: Never Passive Smoke Exposure: Never Smokeless Tobacco: Never Tobacco Cessation:Counseling Given: Not Answered Alcohol Use Standard Drinks/Week Comments Not Currently 0 (1 standard drink = 0.6 oz pur e alcohol) Special Occasions Depression Answer Date Recorded Patient Health Questionnaire-9 Score 0 11/21/2024 Patient Health Questionnaire-9 Score 0 11/21/2024 Last PHQ-9: Questionnaire Data Not on file 0 11/21/2024 Housing Stability Answer Date Recorded What is your housing situation today? I have lexusnilam meraz 11/21/[address] you [...] Orientation Straight 02/23/2022 10 :18 AM EDT Last Filed Vital Signs Vital Sign Reading [...] Mass Index 30.92 11/21/2024 9:21 AM EDT Plan of Treatment Health Maintenance Due Date Last Done Comments HIV Screening 1984 Family Planning (PISQ) 01/13/1999 HPV Vaccines (1 - Male 3-dose series) 01/13/1999 Hepatitis C Screening 01/13/2002 DTaP/Tdap/Td Vaccines (3 - Td or Tdap) 01/03/2022 01/04/2012, 10/01/2004, 08/20/1998 Tobacco Screening 12/30/2023 12/29/2022 COVID-19 Vaccine (3 - season) 2024 07/30/2020, 07/02/2020 Influenza Vaccine (#1) 2024 , 02/21/2020, 07/19/2018, Additional history exists Alcohol/Substance Use Screening 11/21/2025 11/21/2024 Depression Screening 11/21/2025 11/21/2024, 07/29/20 25 Disability Screening 11/21/2025 11/21/2024 SDOH Screening 11/21/2025 11/21/2024 Lipid Panel 02/16/2027 02/16/2022 Zoster Vaccines (1 of 2) 01/13/2034 RSV Patients and Patients Aged 60 years or older (1 - 1-dose 75+ series) 01/13/2059 Hepatitis B Vaccines Completed 07/22/2007, 06/23/2007, 12/29/2004, Additional history exists Hepatitis A Vaccines Aged Out 12/30/2007, 12/22/19 08 No longer eligible based on patient's age to complete this topic HIB Vaccines Aged Out No longer eligi ble based on patient's age to complete this topic IPV Vaccines Aged Out No longer eligi ble based on patient's age to complete this topic Meningococcal B Vaccine Aged Out No l onger eligible based on patient's age to complete this topic Meningococcal Vaccine Aged Out No ned destiny eligible based on patient's age to complete this topic Pneumococcal Vaccine: Pediatrics (0 to 5 Years) and At-Risk Patients (6 to 49) Years Aged Out No longer eligible based on patient's age to complete this topic RSV under 20 months Aged Out No longe r eligible based on patient's age to complete this topic Rotavirus Vaccines Aged Out No longer eligible based on patient's age to complete this topic Procedures Procedure Name Priority Date/Time Associated Diagnosis Comments COMPREHENSIVE METABOLIC PANEL Routine 11/27/2024 8:21 AM EDT Onychomycosis of great toe LIPID PANEL, STANDARD Routine 02/16/2022 8:10 AM EDT from Last 3 Months or Most Recently Relevant to Health Maintenance Results * Comprehensive Metabolic Panel (11/27/2024 8:21 AM EDT) Sodium 141 135 - 145 mmol/L [facility] Potassium 4.2 3.3 - 5.1 mmol/L [facility] Chloride 108 96 - 108 mmol/L [facility] Carbon Dioxide 24 22 - 29 mmol/L [facility] Anion Gap 13 12 - 20 [facility] Urea Nitrogen (BUN) 16 9 - 16 mg/dL [facility] Creatinine, Serum 0.83 0.5 - 1.4 mg/dL [facility] Estimated Glomerular Filt Rate >60 [facility] Comment:Chronic Kidney Disea se: Estimated GFR < 60 mL/min/1.57m8Lyooss Kidney Disease: Estimated GFR < 15 mL/min/1.73m2 Glucose 91 60 - 115 mg/dL [facility] Calcium 9.0 8.4 - 10.2 mg/dL [facility] Bilirubin, Total 0.4 0.0 - 1.0 mg/dL [facility] Aspartate Amino Transferase 25 5 - 37 U/L [facility] Alanine Aminotransferase 21 0 - 40 U/L [facility] Total Protein 7.1 6.5 - 8.0 g/dL [facility] Albumin Level 4.6 3.5 - 5.0 g/dL [facility] Alkaline Phosphatase 60 39 - 117 U/L [facility] Blood Venous blood specimen / Unknown 11/27/2024 8:21 AM EDT 11/27/2024 11:22 AM EDT us Patrice Barnhart MD LAB BLOOD ORDERABLES Final Result [facility] [address] [place] [phone] * (ABNORMAL) LIPID PANEL, STANDARD (02/16/2022 8:10 AM EDT) Chol/HDLC Ratio 4.8 <5.0 (calc) [facility] Cholesterol, Total 172 <200 mg/dL [facility] HDL Cholesterol 36(L) > OR = 40 mg/dL [facility] LDL Cholesterol 119(H) mg/dL (calc) [facility] Comment: Reference range: <100 Desirable range <100 mg/dL for primary prevention; <70 mg/dL for patients with CHD or diabetic patients with > or = 2 CHD risk factors. LDL-C is now calculated using the Esha calculation, which is a validated novel method providing better accuracy than the Friedewald equation in the estimation of LDL-C. Lawson LADD et al. YOLANDA. 2013;310(19): 7660-3758 (http://education.LIQUITY.com/faq/YFZ072) Non-HDL Cholesterol 136(H) <130 mg/dL (calc) [facility] Comment: For patients with diabetes plus 1 major ASCVD risk factor, treating to a non-HDL-C goal of <100 mg/dL (LDL-C of <70 mg/dL) is considered a therapeutic option. Triglycerides 76 <150 mg/dL [facility] 02/16/2022 8:10 AM EDT us Patrice Barnhart MD LAB BLOOD ORDERABLES Final Result [facility] from Last 3 Months or Most Recently Relevant to Health Maintenance [place] [address] [place] [address] C3 HSN FULL Care Teams Social Work Supervisor Relationship Specialty Start Date End Date Patrice Silva MD [address] [place] [phone] PCP - General Internal Medicine 12/01/13
--- NOTE | 2025-02-15 08:00 | A.OFFVIS_ITS ---
Intake Visit Reasons: vasectomy consult Intake Note: Patient is present for VASECTOMY CONSULT Urology Medication:NONE Antibiotic Allergy:NONE Blood Thinner:NONE Aerodynamics Engineer Required: No Allergies No Known Allergies Allergy (Verified 02/15/25 08:47) Medication List - Last Reconciled 02/15/25 by CELI Mendenhall-OVIDIO diazepam (Valium) 2 mg PO DAILY doxycycline monohydrate 100 mg PO BID prednisone 50 mg PO DAILY rabeprazole 20 mg PO DAILY tramadol 50 mg PO Q8H PRN valacyclovir (Valtrex) 1,000 mg PO Q8H HPI Comments Details: Christian is a very pleasant 40-year-old male patient of Dr. Chen. He presents to the office today for - vasectomy evaluation Vasectomy evaluation The patient presents for vasectomy consultation.? He is currently He has fathered -?3 children, with a single partner The youngest child is -2 years His partner is aware and permissive for a vasectomy Current form of control is hormones Current employment is [employer] The vasectomy may be complicated due to a history of no complicating issues. Patient education has been provided via AUA video, via printed information, risks of failure, recovery time, bruising and potential pain syndrome have been stressed Discussion today focused on the presence of vasectomy and the risks, benefits and alternatives that are available. Vasectomy as intended as a permanent form of control. Printed information and literature was provided to the patient. Overall there is a one in 2500 failure rate. This can occur at any time after vasectomy. Risks were discussed highlighting hematoma, spermatocele, epididymal congestion, development of sperm antibodies, and development of chronic pain estimated between 1-5%. The procedure was reviewed in detail. Anatomical diagrams of the male genitalia were used to explain the location of the vas deferens. The vas deferens will be transected, the proximal end will be cauterized, a metal clip would be applied to separate the 2 vas deferens ends. It was explained the procedure will be done in the office and takes approximately 10-15 minutes. Less common problems that arise with vasectomy include hematoma, bleeding, allergic reaction to anesthetic, epididymal infection, epididymal congestion, scrotal discomfort, spermatic leak, spermatic granuloma and the possibility of antisperm antibodies. He understands these risks and wishes to proceed. Consent was signed at the office today. He also understands that it takes 12 weeks for sperm to fully clear the system. He will need to provide a semen sample at 12 weeks and if this is not clear a 2nd sample at 16 weeks. Medical clearance to stop using protection will only be provided if he satisfies published criteria for sperm clearance. 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 Review of Systems Const All systems reviewed & are unremarkable except as noted in HPI and below Physical Exam Const General: cooperative, healthy appearing, comfortable, no acute distress, well developed, alert and awake Orientation/consciousness: patient oriented x3 Limitations: no limitations HEENT Head: Yes normal to inspection, Yes normocephalic and Yes atraumatic Ears: hearing grossly normal bilaterally Eyes General: appearance normal, both eyes and all related structures Neck Neck: Yes normal visual inspection and Yes trachea midline Chest Chest palpation & inspection: normal inspection of the chest Resp Effort & Inspection: normal respiratory effort and able to speak in complete sentences Cardio Rate: regular rate GI Inspection: Yes normal to inspection General: Yes no CVA tenderness Back/Spine/Pelvis Back: no CVA tenderness Skin General skin exam: no rashes or lesions noted Neuro General: patient oriented x3 Extrem General: Yes normal to inspection Psych Appearance: grossly normal and well kempt Mental Status: mental status grossly normal Speech and movement: Normal speech and movement present and Clear speech present Affect: normal affect Attitude: cooperative Thought process: Normal thought process present Thought content: Normal thought content present Insight: Fair insight present (Psych) Judgement: Fair judgement present (Psych) Assessment & Plan Assessment & Plan (1) Anxiety about health: Code(s): F41.8 - Other specified anxiety disorders Category: Medical (2) Vasectomy evaluation: Code(s): Z30. - Encounter for other general counseling and advice on contraception Category: Medical Plan Vasectomy was discussed in detail; risks and benefits. All questions were answered. Consent was obtained. Prescriptions provided; we discussed importance of bringing medications to office day of procedure We discussed fellows kit verses in office semen analysis. Will schedule for in office vasectomy Follow-up per doctor's orders; or sooner with any issues, concerns, and or questions. Medications: New diazepam (Valium) bring medication to office day of procedure 2 mg PO DAILY 2 tabs 0RF anxiety F41.8 - Other specified anxiety disorders tramadol bring medication to office day of procedure 50 mg PO Q8H PRN 7 tabs 0RF pain N43.3 - Hydrocele, unspecified Patient Instructions: The patient had an opportunity to ask questions regarding the treatment plan. All questions were answered. Physical exam, labs, and imaging were discussed and reviewed in detail. As well as risks, benefits, and discussion of treatment choices. No major barriers to understanding were identified. The patient expressed understanding and agreement with the above treatment plan. The patient was made aware they should contact our office by phone for worsening of their current condition, the appearance of new symptoms, or with any questions or concerns. Compliance is encouraged with any medications and follow up testing that is ordered. It is a privilege to be allowed the opportunity to participate in? your urological care.? Again, if you have any questions or concerns If you have any questions or concerns please do not hesitate to contact me. The office is [phone]. This note is constructed using voice recognition software. While every effort has been made to ensure accuracy engineering designer errors may have been included. Yours sincerely, HECTOR Mendenhall Coding Level of Care Code New Pt Level 4 (01318) Diagnoses Anxiety about health F41.8 Vasectomy evaluation Z30.09
== END 2025-02-15 08:49 | disposition home or self-care (01) ==
LOC: HO.HUSH 07:52
PROVIDERS: PCP Internal Medicine; Visit Provider Nurse Practitioner Family
DX: F41.8 Other specified anxiety disorders (principal); Z30.09 Encounter for other general counseling and advice on contraception
CPT/HCPCS: 99204

== ENCOUNTER → 2025-02-15 07:52 | Outpatient (BNVA) | payer MEDICAID, SELFPAY | PROVIDERS: PCP Internal Medicine; Visit Provider Nurse Practitioner Family | DX: Z30.09 Encounter for other general counseling and advice on contraception (principal); F41.8 Other specified anxiety disorders; R45.89 Other symptoms and signs involving emotional state | CPT/HCPCS: 99212 ==